=== PATIENT | male | born 1975 | race Caucasian/White ===

== ENCOUNTER 2019-03-12 15:08 | Outpatient (RCR) | payer BC, SELFPAY | END 2019-03-25 00:01 | LOC: WOUND 15:08 | PROVIDERS: Visit Provider Nurse Practitioner Family | DX: E11.621 Type 2 diabetes mellitus with foot ulcer (principal); L97.522 Non-pressure chronic ulcer of other part of left foot with fat layer exposed ==

== ENCOUNTER 2022-06-29 11:57 | Emergency (ER) | payer OTHER, SELFPAY ==
[2022-06-29 12:17] VITALS: BP 175/109; PULSE 88; RESP 16; TEMP 36.6; O2SAT 97
--- NOTE | 2022-06-29 12:33 | ED_ITS ---
HPI - Extremity Problem General: Chief complaint: Extremity Injury, Lower Stated complaint: right foot pain Time Seen by Provider: 06/29/22 12:10 History of Present Illness: Patient is a 47-year-old male comes to the ED with right foot pain. Injury occurred 2 days ago. Patient says he tripped while he was walking and injured his right midfoot. He is able to ambulate but does endorse pain with ambulation and walks with a limp. He rates his pain currently an 8 out of 10. He is taken [id number] Tylenol and ibuprofen to help with pain. Denies any swelling or ecchymosis of foot. Associated symptoms: Deny chest pain, fever(s) or rash Review of Systems Const: Denies: fever(s), chills or fatigue Eyes: Denies: change in vision or eye discomfort ENMT: Denies: throat pain, odynophagia, nasal discharge or nasal congestion Card: Denies: chest pain, palpitations, edema, swelling of feet/ankles, dyspnea on exertion or orthopnea Resp: Denies: dyspnea, productive cough or non-productive cough GI: Denies: abdominal pain, nausea, vomiting, diarrhea, constipation or hematochezia : Denies: flank pain, difficulty urinating, dysuria or hematuria Musc: Reports: extremity pain (Right foot); Denies: neck pain, back pain or extremity swelling Skin/Breast: Denies: rash or new lesions Neuro: Denies: headache(s), numbness in extremities or weakness in extremities PFS ED PFSH: Medical History No pertinent family history Surgical History No pertinent past surgical history Physical Exam Const: COMMON NORMALS: no acute distress, patient oriented x3 and alert HENMT: COMMON NORMALS: normocephalic HEAD & SCALP: normocephalic MOUTH: Normal oral and palatal mucosa present THROAT: posterior oropharynx normal and uvula midline Neck/C-Spine: COMMON NORMALS: supple GENERAL: Yes normal visual inspection Resp: COMMON NORMALS: normal respiratory effort, No retractions, No use of accessory muscles and clear to auscultation bilaterally AUSCULTATION: clear to auscultation bilaterally Cardio: COMMON NORMALS: regular rate, regular rhythm, S1 normal heart sound present, S2 normal heart sound present, No gallops present (Cardio), No clicks present (Cardio), No murmurs present (Cardio) and Peripheral pulses 2+ throughout RATE: regular rate RHYTHM: regular rhythm HEART SOUNDS: S1 normal heart sound present and S2 normal heart sound present PERIPHERAL PULSES: Peripheral pulses 2+ throughout GI: COMMON NORMALS: Normal to inspection, nondistended, normoactive bowel sounds present, Soft to palpation, non-tender and no masses PALPATION: Yes Soft to palpation : COMMON NORMALS: Yes no CVA tenderness BLADDER/KIDNEY EXAM: Yes no CVA tenderness Back/Pelvis: COMMON NORMALS: no CVA tenderness Extremity: COMMON NORMALS: normal to inspection, full ROM and capillary refill normal Neuro: COMMON NORMALS: patient oriented x3 SENSORIUM/ORIENTATION: Yes alert GAIT: Yes Normal gait present Skin: GENERAL SKIN EXAM: dry skin Course Vital Signs: Vital signs: Vital Signs Temperature 97.8 F 06/29/22 12:17 Pulse Rate 88 06/29/22 12:17 Respiratory Rate 16 06/29/22 12:17 Blood Pressure 175/109 06/29/22 12:17 Pulse Oximetry 97 06/29/22 12:17 Oxygen Delivery Me thod 06/29/22 12:17 MDM - Extremity (Nontraumatic) Medical Decision Making Patient is a 47-year-old male comes to the ED with right foot pain. Injury occurred 2 days ago. Patient says he tripped while he was walking and injured his right midfoot. He is able to ambulate but does endorse pain with ambulation and walks with a limp. He rates his pain currently an 8 out of 10. He is taken [id number] Tylenol and ibuprofen to help with pain. Denies any swelling or ecchymosis of foot. Vitals stable. Exam of foot is benign. X-ray of right foot shows no acute fractures or findings. Patient was stable for discharge diagnosed with right foot pain. Return to ED precautions given. Follow-up with PCP in the next week for reevaluation. Patient understood and agreed with plan. Lab Data Radiology Impressions Foot X-Ray 06/29/22 12:44 IMPRESSION: 1. No acute findings. 2. Healed proximal 5th phalangeal fracture. Discharge Plan Discharge Patient Disposition: Home Clinical Impression: Foot pain, right Condition: Stable Discharge Orders: Discharge ED (Routine); Ordered 06/29/22 Ordered By: Jass Guillen Referrals: Xiomy Dempsey MD [Primary Care Provider] - Discharge Diet: Regular Discharge Activity: Increase activity as tolerated Activity Restrictions/Additional Instructions: Follow-up with medical provider as directed in the next 5 to 7 days for reevaluation. Rest, ice and elevate right foot. Take [id number] ibuprofen or Tylenol for pain. Return to the ER or your medical provider if condition worsens. Please read and understand discharge instructions. Thank you for choosing [facility] for your healthcare needs today. Please realize this is an emergency room and that we are providing you with a medical screening exam and this may not be complete and all inclusive of all the testing and or work up that you may need to determine your ailment or severity of your illness. It is very important that you follow up as instructed or that you return to the Emergency Department should you have concerns or if your condition changes or worsens in any way. Coding Level of Care Code ED Medical Receptionist Assistant for Bud Correia
--- NOTE | 2022-06-29 12:44 | XRR_ITS ---
PROCEDURE INFORMATION: Exam: XR Right Foot Exam date and time: 06/29/2022 12:51 PM Age: 47 years old Clinical indication: Injury or trauma; Fall; Other: Stepped on foot; Additional info: Right foot injury, pain at mid foot; Tripped and stepped on own foot couple days ago. TECHNIQUE: Imaging protocol: Radiologic exam of the right foot. Views: 3 or more views. COMPARISON: CR XR foot RT min 3V* [id number] 03/15/2017 11:26 AM FINDINGS: Bones/joints: There is a dorsal navicular osteophyte at the talonavicular joint. Alignment is normal. Joint spaces are preserved. There is a healed fracture of the proximal 5th phalanx. No acute fracture. Soft tissues: Vascular calcification is present. Visible soft tissues are unremarkable. XR/XR foot RT min 3V* [id number] IMPRESSION: 1. No acute findings. 2. Healed proximal 5th phalangeal fracture.
== END 2022-06-29 13:38 | disposition home or self-care (01) ==
PROVIDERS: Emergency Provider Physician Assistant; PCP Internal Medicine
DX: M79.671 Pain in right foot (principal)
CPT/HCPCS: 73630; 99283

== ENCOUNTER 2022-10-26 06:00 | Outpatient (CLI) | payer OTHER, SELFPAY ==
--- NOTE | 2022-10-26 | USCV_ITS ---
Cresencio Herrera Age: 47 Gender: M : 1975 Exam Date: 10/26/2022 06:18 Ordering Phys: Flaquita Treviño Technologist: PEDRITO [place] [facility] [place]: LLE PAIN HISTORY: Lower extremity pain. PROCEDURES: Venous duplex imaging was performed in only the left lower extremity. The following venous structures were evaluated: common femoral vein, profunda vein, proximal portion of the greater saphenous vein, superficial femoral vein, and the popliteal vein. In addition, the posterior tibial and peroneal trunk were evaluated. Serial compression, augmentation maneuvers, and spectral Doppler flow evaluation were performed. FINDINGS: Normal 2-D Doppler and augmentation and compressibility throughout the lower extremity venous structures. Additional imaging through the proximal calf veins also reveals no thrombus. Limited evaluation of the greater saphenous vein is patent with no thrombus. CONCLUSIONS No DVT left lower extremity. Dr. Tory Valdivia DO (Electronically Signed) Final Date: 26 October 2022 08:47 S
== END 2022-10-26 06:01 | disposition home or self-care (01) ==
PROVIDERS: PCP Internal Medicine; Visit Provider Nurse Practitioner Family
DX: M79.605 Pain in left leg (principal)
CPT/HCPCS: 93971

== ENCOUNTER 2024-05-02 15:54 | Outpatient (CLI) | payer OTHER, SELFPAY ==
--- NOTE | 2024-05-02 15:56 | US_ITS ---
WS: [id number] RENAL ULTRASOUND HISTORY: CHRONIC KIDNEY DISEASE COMPARISON: 07/12/2010 TECHNIQUE: 2-D and color Doppler imaging of the kidney submitted. Right kidney: 11.4 cm x 5.0 cm x 5.5 cm. Cortex: 1.5 cm Normal echogenicity with no hydronephrosis or mass. Left kidney: 11.1 cm x 5.5 cm x 5.3 cm. Cortex: 1.5 cm Normal echogenicity with no hydronephrosis or mass. Aorta: Mild atherosclerosis. Urinary Bladder: Normal distention. US/US renal BI* [id number] IMPRESSION: Normal renal ultrasound.
== END 2024-05-02 15:55 | disposition home or self-care (01) ==
PROVIDERS: PCP Internal Medicine; Visit Provider Internal Medicine
DX: N18.32 Chronic kidney disease, stage 3b (principal); I70.0 Atherosclerosis of aorta
CPT/HCPCS: 76770

== ENCOUNTER → 2024-06-11 08:18 | Outpatient (BNVA) | payer OTHER, SELFPAY | PROVIDERS: PCP Internal Medicine; Visit Provider Physician Assistant | DX: M25.521 Pain in right elbow (principal); M77.11 Lateral epicondylitis, right elbow | CPT/HCPCS: 73080 ==

== ENCOUNTER 2024-06-25 10:18 | Outpatient (CLI) | payer OTHER, SELFPAY ==
--- NOTE | 2024-06-25 10:24 | MR_ITS ---
WS: [id number] MRI HEAD WITHOUT CONTRAST TECHNIQUE: Sagittal T1, T2 axial, T2 axial FLAIR, axial and coronal T1 images, axial susceptibility weighted imaging, axial diffusion weighted images, and coronal T2 images were obtained. CLINICAL INFORMATION: WEAKNESS OF LEFT SIDE OF BODY COMPARISON: None. FINDINGS: Large area of susceptibility artifact suspicious for intraparenchymal hematoma involving the posterior limb RIGHT internal capsule extending into the lateral basal ganglia. Area of susceptibility artifact measures approximately 1.4 x 1.8 cm with moderate surrounding edema. Minimal mass effect on the RIGHT lateral ventricle. Small amount of edema extends along the RIGHT corticospinal tract along the RIGHT internal capsule posterior limb and RIGHT mid brain. No hydrocephalus or midline shift. Areas of increased T1 signal suspicious for subacute blood products. Underlying mass or lesion such as cavernoma or vascular malformation are considerations in a patient this age. Patchy supratentorial periventricular white matter changes. This is nonspecific in a patient this age but can be seen with hypertension diabetes and migraine headaches. No significant parenchymal volume loss. Normal posterior fossa. Normal vascular flow voids at the skull base. No extra-axial fluid collections. Paranasal sinuses are well aerated. Mastoid air cells are well aerated. Normal posterior nasopharynx. MR/MR head wo con* [id number] IMPRESSION: 1. 1.8 x 1.5 cm area of susceptibility artifact along the posterior limb RIGHT internal capsule extending into the RIGHT lateral basal ganglia suspicious for intraparenchymal hematoma with subacute blood products. 2. Moderate surrounding edema with localized mass effect. No significant midli ne shift. Minimal mass effect on the RIGHT lateral ventricle. 3. No hydrocephalus. 4. Recommend short interval follow-up with CT to assess change and to assess f or underlying calcification that could be seen with a cavernoma or AV malformat ion. This may present benign hypertensive hemorrhage. Recommend follow-up to re solution to ensure no underlying lesion. Notified Xiomy Dempsey MD at 06/25/2024 11:47 AM.
== END 2024-06-25 10:19 | disposition home or self-care (01) ==
PROVIDERS: PCP Internal Medicine; Visit Provider Internal Medicine
DX: G81.90 Hemiplegia, unspecified affecting unspecified side (principal); R93.0 Abnormal findings on diagnostic imaging of skull and head, not elsewhere classified
CPT/HCPCS: 70551

== ENCOUNTER 2025-01-27 13:30 | Outpatient (CLI) | payer OTHER, SELFPAY ==
[2025-01-27 14:08] LABS: Hematocrit 35.5 % (37-53); Hemoglobin 12.50 g/dL (11.27-16.99); Mean Corpuscular HGB Conc 35.2 g/dL (30-55); Mean Corpuscular Hemoglobin 29.8 pg (27-33); Mean Corpuscular Volume 84.7 fl (82-101); Nucleated Red Blood Cells % 0 %; Platelet Count 179 10^3/cmm (157-399); Red Blood Count 4.19 10^6/uL (3.85-5.65); White Blood Count 8.74 10^3/uL (3.29-11.43)
[2025-01-27 14:19] LABS: Estmated Average Glucose 126; Hemoglobin A1C 6.0 % (4.0-6.0)
[2025-01-27 14:20] LABS: Calcium 8.7 mg/dL (8.5-10.5)
[2025-01-27 14:23] LABS: Albumin Level 3.9 g/dL (3.5-5.2); Anion Gap 17.7 (5-19); Blood Urea Nitrogen 31 mg/dL (6-20); Calcium 8.9 mg/dL (8.5-10.5); Carbon Dioxide 23 mmol/L (22-29); Chloride 106 mmol/L (98-107); Glucose 144 mg/dL (65-115); Potassium 3.7 mmol/L (3.5-5.1); Sodium 143 mmol/L (136-145)
[2025-01-27 14:26] LABS: Creatinine Urine, Random 226 mg/dL (39-259)
[2025-01-27 14:59] LABS: Microalbum Creatinine Ratio Ur 1562 mg/dL (0-20)
== END 2025-01-27 13:31 | disposition home or self-care (01) ==
PROVIDERS: PCP Internal Medicine; Visit Provider Registered Nurse
DX: E11.65 Type 2 diabetes mellitus with hyperglycemia (principal)
CPT/HCPCS: 36415; 80069; 82044; 82310; 83036; 83970; 85025